=== PATIENT | male | born 1980 | race African-American/Black ===

== ENCOUNTER 2016-11-07 12:54 | Emergency (ER) | payer OTHER ==
[~2016-11-07] VITALS: Ht 167.6 cm; Wt 81.2 kg
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
== END 2016-11-07 16:44 | disposition home or self-care (01) ==
LOC: CED 12:54 → CFTX 12:54
DX: S02.2XXA Fracture of nasal bones, initial encounter for closed fracture (principal); S29.9XXA Unspecified injury of thorax, initial encounter; S79.921A Unspecified injury of right thigh, initial encounter; S79.922A Unspecified injury of left thigh, initial encounter; M54.2 Cervicalgia; M54.9 Dorsalgia, unspecified; F17.200 Nicotine dependence, unspecified, uncomplicated; V47.0XXA Car driver injured in collision with fixed or stationary object in nontraffic accident, initial encounter
CPT/HCPCS: 70486; 72040; 72100; 99284

== ENCOUNTER 2016-12-19 06:52 | Emergency (ER) | payer OTHER ==
[~2016-12-19] VITALS: Ht 167.6 cm; Wt 77.1 kg
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
== END 2016-12-19 10:53 | disposition home or self-care (01) ==
LOC: CFTX 06:52 → CED 06:52 → CFTX 09:18
DX: S23.3XXA Sprain of ligaments of thoracic spine, initial encounter (principal); S33.5XXA Sprain of ligaments of lumbar spine, initial encounter; F17.210 Nicotine dependence, cigarettes, uncomplicated; V43.62XA Car passenger injured in collision with other type car in traffic accident, initial encounter; Y92.410 Unspecified street and highway as the place of occurrence of the external cause
CPT/HCPCS: 71020; 72072; 72100; 99284